=== PATIENT | female | born 1980 | race Caucasian/White ===

== ENCOUNTER 2023-04-09 20:25 | Emergency (ER) | payer MEDICARE, MEDICAID | END 2023-04-09 21:45 | disposition home or self-care (01) | LOC: JP.ED 20:25 | DX: S63.502A Unspecified sprain of left wrist, initial encounter (principal); Z79.899 Other long term (current) drug therapy; Z88.8 Allergy status to other drugs, medicaments and biological substances; Z91.048 Other nonmedicinal substance allergy status; W01.0XXA Fall on same level from slipping, tripping and stumbling without subsequent striking against object, initial encounter | CPT/HCPCS: 73110-LT; 73130-LT; 99283 ==

== ENCOUNTER 2024-06-26 19:47 | Emergency (ER) | payer MEDICAID, MEDICARE ==
[2024-06-26] MEDS: Lidocaine 1% with EPINEPHrine 1:100,000 50 ML MDV INJECT ONE (20:34)
[2024-06-26] MEDS: Bacitracin Oint 1 GM U/D Packet TOP ONE (22:06)
[2024-06-26] MEDS: Diphtheria,Pertussis(Acell),Tetanus Vaccine 0.5 ML Syringe IM ONE (22:07)
== END 2024-06-26 22:21 | disposition home or self-care (01) ==
LOC: JP.ED 19:47
DX: S01.81XA Laceration without foreign body of other part of head, initial encounter (principal); E03.9 Hypothyroidism, unspecified; Z91.048 Other nonmedicinal substance allergy status; Z91.018 Allergy to other foods; Z88.5 Allergy status to narcotic agent; Z79.890 Hormone replacement therapy; Z79.899 Other long term (current) drug therapy; Z23 Encounter for immunization; W27.8XXA Contact with other nonpowered hand tool, initial encounter; Y93.89 Activity, other specified
CPT/HCPCS: 12011; 90471; 90715; 99282-25; 99283